=== PATIENT | female | born 1980 | race Caucasian/White ===

== ENCOUNTER 2021-07-31 00:43 | Emergency (ER) | payer MEDICAID, OTHER ==
[2021-07-31] MEDS ORDERED: traMADol 50 MG Tab PO ONE (00:44)
== END 2021-07-31 01:53 | disposition home or self-care (01) ==
LOC: FB.ED 00:43
DX: S83.92XA Sprain of unspecified site of left knee, initial encounter (principal); W18.30XA Fall on same level, unspecified, initial encounter
CPT/HCPCS: 73562-LT; 99282; 99283-25; A9270-GY